=== PATIENT | female | born 1950 ===

== ENCOUNTER 2018-01-08 16:15 | Observation (INO) | payer MEDICARE, MEDICAID ==
[2018-01-08 16:16] VITALS: BMI 31.2
--- NOTE | 2018-01-08 16:58 | ED PDOC ---
HPI:STROKE - Time Time: 16:41 - Historian Historian: Patient - Chief Complaint Chief Complaint: Numbness - Onset Date: 12/25/17 Time: 12:00 - Timing Timing: Resolved - TPA Positive for Contraindication: Yes Reason tPA is not being Administered: out of window and nih is 0 - Notes: Notes:: Pt. with numbness to left face and left arm 2 weeks ago that happened. It happened 2x and then again today it happened 2x. Resolved currently. Yesterday felt weakness all over. No headaches, dizziness, neck pain. No chest pain, dyspnea. Has cough, nasal congestion, runny nose for 3 days. No leg or arm pain. NIHSS Stroke Scale - Date/Time Evaluation Performed Date Performed: 01/08/18 Time Performed: 16:32 When Was NIHSS Performed: Baseline - How Severe is the Stroke Level of Consciousness: 0=Alert LOC to Questions: 0=Both comments correct LOC to commands: 0=Obeys both correctly Best Gaze: 0=Normal Visual: 0=No visual loss Facial: 0=Normal Motor Arm - Left: 0=No drift Motor Arm - Right: 0=No drift Motor Leg - Left: 0=No drift Motor Leg - Right: 0=No drift Limb Ataxia: 0=Absent Sensory: 0=Normal Best Language: 0=No aphasia Dysarthia: 0=Normal articulation Extinction & Inattention (Neglect): 0=Normal, no object Score: 0 rTPA Inclusion/Exclusion - Refusal of Treatment Patient Refused Treatment: No - Inclusion Criteria for Altepase Patient is 18 years or Older: Yes The Clinical Diagnosis of Ischemic Stroke That is Causing a Potentially Disabling Neurological Deficit: No Time of Onset is Well Established to be Less Than 270 Minute Before Treatment Would Begin: No Risk/Benefit Discussed With Patient/Family Member Present: No Past Medical History Reviewed: Nursing Documentation, Vital Signs Vital Signs: Last Vital Signs Temp 98.0 F 01/08/18 16:30 Pulse 83 01/08/18 16:30 Resp 18 01/08/18 16:30 BP 140/59 L 01/08/18 16:30 Pulse Ox 99 01/08/18 16:30 - Medical History PMH: Arthritis, HTN, Hypercholesterolemia, Hyperlipidemia, Malignancy (Ovarian cancer, uterine cancer, colon cancer.), Osteoporosis Denies: Chronic Kidney Disease - Family History Family History: States: Unknown Family Hx - Immunization History Hx Tetanus Toxoid Vaccination: No Hx Influenza Vaccination: No Hx Pneumococcal Vaccination: No - Home Medications Home Medications: Ambulatory Orders Medication Instructions Recorded Ibuprofen [Motrin Tab] 600 mg PO Q8H PRN #12 tab 01/14/17 Lisinopril [Zestril] 10 mg PO DAILY #30 01/14/17 Omeprazole 20 mg PO DAILY #30 01/14/17 Amoxicillin [Amoxil 500 mg Cap] 1 cap PO BID 03/14/17 Azithromycin [Zithromax] 500 mg PO DAILY #7 tablet 03/14/17 Benzonatate [Tessalon Perles] 100 mg PO TID #20 sgl 03/14/17 Naproxen [Naprosyn Tab] 375 mg PO TIDPC #20 tab 03/14/17 - Allergies Allergies/Adverse Reactions: Allergies Allergy/AdvReac Type Severity Reaction Status Date / Time shrimp Allergy Severe RASH Verified 03/14/17 04:19 iodine Allergy Verified 03/14/17 04:19 hydromorphone [From Dilaudid] AdvReac ITCHING Verified 03/14/17 04:19 Review of Systems ROS Statement: Except As Marked, All Systems Reviewed And Found Negative Constitutional: Positive for: Weakness ENT: Positive for: Nose Congestion Respiratory: Positive for: Cough Neurological: Positive for: Weakness, Numbness Physical Exam - Reviewed Nursing Documentation Reviewed: Yes Vital Signs Reviewed: Yes - Physical Exam Appears: Positive for: Non-toxic, No Acute Distress Head Exam: Positive for: ATRAUMATIC, NORMAL INSPECTION, NORMOCEPHALIC Skin: Positive for: Normal Color, Warm, DRY Eye Exam: Positive for: EOMI, Normal appearance, PERRL ENT: Positive for: Nasal Congestion. Negative for: Pharyngeal Erythema, Tonsillar Exudate Neck: Positive for: Normal, Painless ROM, Supple Cardiovascular/Chest: Positive for: Regular Rate, Rhythm Respiratory: Positive for: CNT, Normal Breath Sounds Gastrointestinal/Abdominal: Positive for: Normal Exam, Soft. Negative for: Tenderness Back: Positive for: Normal Inspection. Negative for: L CVA Tenderness, R CVA Tenderness Extremity: Positive for: Normal ROM. Negative for: Tenderness, Pedal Edema Neurologic/Psych: Positive for: Alert, buyer tobacco head II-XII, Oriented. Negative for: Motor/Sensory Deficits, Mood/Affect, Aphasia, Facial Droop - Laboratory Results Result Diagrams: 01/08/18 16:56 01/08/18 16:56 Interpretation Of Abn Labs: 19.8 wbc Urine dip results: Negative for: Leukocyte Esterase, Nitrate - ECG ECG: Positive for: Interpreted By Me, Viewed By Me ECG Rhythm: Positive for: Normal QRS, Normal ST Segment, Sinus Rhythm O2 Sat by Pulse Oximetry: 99 Pulse Ox Interpretation: Normal - Radiology X-Ray: Read By Radiologist X-Ray Interpretation: No Acute Disease - CT Scan/US ct Other Rad Studies (CT/US): Read By Radiologist Other Rad Interpretation: no acute - Progress ED Course And Treament: 1929: Stable. AAOx3. No symptoms currently. Will admit tele obs. Spoke with Dr. Lisa who will admit. Disposition - Clinical Impression Clinical Impression: TIA (transient ischemic attack), Leukocytosis, URI (upper respiratory infection ) - Patient ED Disposition Is Patient to be Admitted: Yes Counseled Patient/Family Regarding: Studies Performed, Diagnosis - Disposition Disposition Time: 19:00 Condition: FAIR - Pt Status Changed To: Hospital Disposition Of: Observation - POA Present On Arrival: None
[2018-01-08 17:05] LABS: BASO # 0.2 K/uL (0.0-0.2); BASO % 1.1 % (0.0-2.0); EOS # 0.3 K/uL (0.0-0.7); EOS % 1.3 % (0.0-4.0); HEMOGLOBIN 14.4 g/dL (12.0-16.0); LYMPH # 5.7 K/uL (1.0-4.3); LYMPH % 29.1 % (20.0-40.0); MEAN CELL VOLUME 86.1 fl (81.0-99.0); MEAN CORPUSCULAR HEMOGLOBIN 27.8 pg (27.0-31.0); MEAN CORPUSCULAR HGB CONC 32.3 g/dL (33.0-37.0); MEAN PLATELET VOLUME 9.5 fl (7.2-11.7); MONO # 1.7 K/uL (0.0-0.8); MONO % 8.7 % (0.0-10.0); NEUT # 11.8 K/uL (1.8-7.0); NEUT % 59.8 % (50.0-75.0); RBC 5.16 Mil/uL (3.80-5.20); RED CELL DISTRIBUTION WIDTH 14.8 % (11.5-14.5); WHITE BLOOD COUNT 19.8 K/uL (4.8-10.8)
[2018-01-08] MEDS: Sodium Chloride 0.9% 1,000 ML IV SCH (17:12)
[2018-01-08 17:16] LABS: ALB/GLOB RATIO 1.2 (1.0-2.1); ALBUMIN 3.7 g/dL (3.5-5.0); ALT/SGPT 40 U/L (9-52); AST/SGOT 25 U/L (14-36); BLOOD UREA NITROGEN 22 mg/dl (7-17); CALCIUM 9.1 mg/dL (8.4-10.2); GFR AFRICAN-AMERICAN > 60; GFR NON-AFRICAN AMERICAN > 60; HDL CHOLESTEROL 56 MG/DL (30-70)
--- NOTE | 2018-01-08 17:17 | CT ---
PROCEDURE: CT scan brain dated 01/08/2018 HISTORY: Headache COMPARISON: None available. TECHNIQUE: Axial computed tomography images were obtained through the head/brain without intravenous contrast. Radiation dose: Total exam DLP = 673.67 mGy-cm. This CT exam was performed using one or more of the following dose reduction techniques: Automated exposure control, adjustment of the mA and/or kV according to patient size, and/or use of iterative reconstruction technique. FINDINGS: HEMORRHAGE: No acute parenchymal, subarachnoid nor extra-axial hemorrhage. BRAIN: Mild diffuse/confluent chronic periventricular white matter ischemic changes. Additionally, there are a scattered subcortical and bilateral basal nuclei chronic lacunar-type infarcts. . Mild age-appropriate volume loss. VENTRICLES: No obstructive hydrocephalus. CALVARIUM: There are no acute calvarial fractures. PARANASAL SINUSES: Frontal sinuses are underpneumatized/ hypoplastic. . The remaining visualized paranasal sinuses are otherwise well-developed. Minor mucosal thickening seen within a few ethmoid air cells. . MASTOID AIR CELLS: Left mastoid air complex is slightly underpneumatized on compared the right. OTHER FINDINGS: Orbits and contents unremarkable. IMPRESSION: No acute intracranial hemorrhage. Mild chronic white matter and basal nuclei ischemic changes. Mild age-appropriate volume loss.
[2018-01-08 17:26] LABS: LDL CHOLESTEROL 109 mg/dL (0-129)
[2018-01-08 17:38] LABS: INR 1.1 (0.9-1.2); PARTIAL THROMBOPLASTIN TIME 22.1 Seconds (25.6-37.1); PROTHROMBIN TIME 11.7 Seconds (9.8-13.1)
[2018-01-08] MEDS ORDERED: Aspirin 325 mg EC Tablets PO ONE (21:29)
[2018-01-09] MEDS: levoFLOXacin 500 mg in D5W 500 MG/100 ML BAG IVPB SCH (00:36)
[2018-01-09] MEDS: Sodium Chloride 0.9% 1,000 ML IV SCH ×2 (06:51)
--- NOTE | 2018-01-09 08:24 | CP.PCM.HP ---
History of Present Illness - History of Present Illness History of Present Illness: 67 yo ,f, Pmhs/o HTN, HLD, Colon Ca s/p chemotherapy 8 years ago, lung CA s/p chemotherapy 6 years ago presents to ED c/o left side facial numbness and left hand numbness started yesterday ,not related with any particular event. Patient reports it happened also 3 months ago. She also c/o dry cough for the last 5 days associated with chest pain when she cough. She reports +sick contact. She denies fever, SOB, focal motor weakness, headache, confusion, slurred speech, recent travel. Patient reports she had a static surgery 2 weeks ago on her eyelids. PMd : marivel Hem-Onc: Dr Curtis Present on Admission - Present on Admission Any Indicators Present on Admission: No History of DVT/PE: No History of Uncontrolled Diabetes: No Urinary Catheter: No Decubitus Ulcer Present: No Review of Systems - Review of Systems All systems: reviewed and no additional remarkable complaints except - Cardiovascular Cardiovascular: As Per HPI - Respiratory Respiratory: As Per HPI - Neurological Neurological: Numbness Additional comments: left side facial and left hand Past Patient History - Past Medical History & Family History Past Medical History?: Yes - Past Social History Smoking Status: Former Smoker - CARDIAC Hx Cardiac Disorders: Yes Hx Hypercholesterolemia: Yes Hx Hypertension: Yes - PULMONARY Hx Respiratory Disorders: Yes Other/Comment: Right lung cancer - chemo ( 5 years ago) - NEUROLOGICAL Hx Neurological Disorder: No - HEENT Hx HEENT Problems: No Other/Comment: bilateral eyelids surgery - RENAL Hx Chronic Kidney Disease: No - ENDOCRINE/METABOLIC Hx Endocrine Disorders: No - HEMATOLOGICAL/ONCOLOGICAL Hx Blood Disorders: Yes Hx AIDS: No Hx Cancer: Yes (lung, ovarian and colon ca) Hx Chemotherapy: Yes (5 years ago) Hx Human Immunodeficiency Virus (HIV): No Other/Comment: Pt in remission - INTEGUMENTARY Hx Dermatological Problems: No - MUSCULOSKELETAL/RHEUMATOLOGICAL Hx Musculoskeletal Disorders: Yes Hx Arthritis: Yes Hx Falls: No Hx Osteoporosis: Yes - GASTROINTESTINAL Hx Gastrointestinal Disorders: Yes Hx Gastroesophageal Reflux: Yes - GENITOURINARY/GYNECOLOGICAL Hx Genitourinary Disorders: Yes Hx Ovarian Cancer: Yes Hx Uterine Cancer: Yes - PSYCHIATRIC Hx Psychophysiologic Disorder: No Hx Substance Use: No - SURGICAL HISTORY Hx Surgeries: Yes Hx Hysterectomy: Yes Other/Comment: colon surgery, removed - ANESTHESIA Hx Anesthesia: Yes Hx Anesthesia Reactions: No Hx Malignant Hyperthermia: No Meds Allergies/Adverse Reactions: Allergies Allergy/AdvReac Type Severity Reaction Status Date / Time shrimp Allergy Severe RASH Verified 03/14/17 04:19 iodine Allergy Verified 03/14/17 04:19 hydromorphone [From Dilaudid] AdvReac ITCHING Verified 03/14/17 04:19 Physical Exam - Constitutional Appears: Non-toxic, No Acute Distress - Head Exam Head Exam: ATRAUMATIC, NORMOCEPHALIC - Eye Exam Eye Exam: EOMI, Normal appearance. absent: Nystagmus - ENT Exam ENT Exam: Mucous Membranes Moist - Neck Exam Neck exam: Positive for: Normal Inspection - Respiratory Exam Respiratory Exam: Clear to Auscultation Bilateral. absent: Rales, Rhonchi, Wheezes - Cardiovascular Exam Cardiovascular Exam: REGULAR RHYTHM, +S1, +S2 - GI/Abdominal Exam GI & Abdominal Exam: Normal Bowel Sounds, Soft. absent: Guarding, Rebound - Extremities Exam Extremities exam: Positive for: normal inspection. Negative for: pedal edema - Back Exam Back exam: NORMAL INSPECTION - Neurological Exam Neurological exam: Alert, Oriented x3 - Psychiatric Exam Psychiatric exam: Normal Affect, Normal Mood - Skin Skin Exam: Intact Results - Vital Signs Recent Vital Signs: Last Vital Signs Temp 97.6 F 01/09/18 08:10 Pulse 67 01/09/18 08:10 Resp 20 01/09/18 08:10 BP 120/71 01/09/18 08:10 Pulse Ox 96 01/09/18 08:10 - Labs Result Diagrams: 01/09/18 10:00 01/09/18 10:00 Labs: Laboratory Results - last 24 hr 01/08/18 01/08/18 01/08/18 16:56 16:56 16:56 WBC 19.8 H RBC 5.16 Hgb 14.4 Hct 44.5 MCV 86.1 MCH 27.8 MCHC 32.3 L RDW 14.8 H Plt Count 272 MPV 9.5 Neut % (Auto) 59.8 Lymph % (Auto) 29.1 [place] % (Auto) 8.7 Eos % (Auto) 1.3 Baso % (Auto) 1.1 Neut # (Auto) 11.8 H Lymph # (Auto) 5.7 H [place] # (Auto) 1.7 H Eos # (Auto) 0.3 Baso # (Auto) 0.2 PT 11.7 INR 1.1 APTT 22.1 L Sodium 140 Potassium 3.9 Chloride 101 Carbon Dioxide 26 Anion Gap 17 BUN 22 H Creatinine 0.7 Est GFR ( Amer) > 60 Est GFR (Non-Af Amer) > 60 POC Glucose (mg/dL) Random Glucose 97 Hemoglobin A1c Calcium 9.1 Total Bilirubin 0.4 AST 25 ALT 40 Alkaline Phosphatase 93 Troponin I < 0.0120 Total Protein 6.8 Albumin 3.7 Globulin 3.1 Albumin/Globulin Ratio 1.2 Triglycerides 191 H Cholesterol 192 LDL Cholesterol Direct 109 HDL Cholesterol 56 Blood Type Antibody Screen BBK History Checked 01/08/18 01/08/18 01/08/18 16:56 17:00 17:50 WBC RBC Hgb Hct MCV MCH MCHC RDW Plt Count MPV Neut % (Auto) Lymph % (Auto) [place] % (Auto) Eos % (Auto) Baso % (Auto) Neut # (Auto) Lymph # (Auto) [place] # (Auto) Eos # (Auto) Baso # (Auto) PT INR APTT Sodium Potassium Chloride Carbon Dioxide Anion Gap BUN Creatinine Est GFR ( Amer) Est GFR (Non-Af Amer) POC Glucose (mg/dL) 118 H Random Glucose Hemoglobin A1c 6.5 Calcium Total Bilirubin AST ALT Alkaline Phosphatase Troponin I Total Protein Albumin Globulin Albumin/Globulin Ratio Triglycerides Cholesterol LDL Cholesterol Direct HDL Cholesterol Blood Type O POSITIVE Antibody Screen Negative BBK History Checked No verified bt Assessment & Plan - Assessment and Plan (Free Text) Plan: Assessment/Plan 1) TIA CT head no intracranial bleeding Neurology consult suggested -f/U MRI brain 2) URI CXr normal -Levaquin 3) Leukocytosis May be 2/2 URI -wbc trending down 4) Hx/o colon ca -chronic 5) Hx/o Lung CA -chronic 6) DVT Prophylaxis -lovenox 40 mg sc
--- NOTE | 2018-01-09 08:43 | RAD ---
HISTORY: Code Stroke COMPARISON: No prior. FINDINGS: LUNGS: 6 mm nodular density in the right upper/ mid lung. No active pulmonary disease. PLEURA: No significant pleural effusion identified, no pneumothorax apparent. CARDIOVASCULAR: Normal. OSSEOUS STRUCTURES: No significant abnormalities. VISUALIZED UPPER ABDOMEN: Normal. OTHER FINDINGS: None. IMPRESSION: No active disease. 6 mm nodular density in the right upper/ midlung. CT scan of the chest can be obtained for further evaluation as clinically warranted. ER notification submitted electronically.
[2018-01-09] MEDS: Enoxaparin 40 mg Syringe SC SCH (09:04)
[2018-01-09] MEDS: Pantoprazole 40 mg EC Tab PO SCH (09:09)
[2018-01-09 10:20] LABS: BASO # 0.1 K/uL (0.0-0.2); BASO % 0.6 % (0.0-2.0); EOS # 0.7 K/uL (0.0-0.7); EOS % 4.7 % (0.0-4.0); HEMOGLOBIN 13.7 g/dL (12.0-16.0); LYMPH # 5.2 K/uL (1.0-4.3); LYMPH % 35.8 % (20.0-40.0); MEAN CELL VOLUME 86.1 fl (81.0-99.0); MEAN CORPUSCULAR HEMOGLOBIN 28.3 pg (27.0-31.0); MEAN CORPUSCULAR HGB CONC 32.9 g/dL (33.0-37.0); MEAN PLATELET VOLUME 9.2 fl (7.2-11.7); MONO # 0.9 K/uL (0.0-0.8); MONO % 6.6 % (0.0-10.0); NEUT # 7.5 K/uL (1.8-7.0); NEUT % 52.3 % (50.0-75.0); NRBC % 0.1 % (0.0-0.0); RBC 4.83 Mil/uL (3.80-5.20); RED CELL DISTRIBUTION WIDTH 14.7 % (11.5-14.5); WHITE BLOOD COUNT 14.4 K/uL (4.8-10.8)
[2018-01-09 10:42] LABS: ALB/GLOB RATIO 1.2 (1.0-2.1); ALBUMIN 3.2 g/dL (3.5-5.0); ALT/SGPT 31 U/L (9-52); AST/SGOT 19 U/L (14-36); BLOOD UREA NITROGEN 16 mg/dl (7-17); CALCIUM 8.8 mg/dL (8.4-10.2); GFR AFRICAN-AMERICAN > 60; GFR NON-AFRICAN AMERICAN > 60
--- NOTE | 2018-01-09 12:20 | CARD ---
APPROVED REPORT EKG Measurement Heart [id number] [id number] <Conclusion> Normal sinus rhythm Minimal voltage criteria for LVH, may be normal variant Borderline ECG
[2018-01-09 12:40] LABS: SQUAMOUS EPITHIAL < 1 /hpf (0-5); URINE BACTERIA RARE (<OCC); URINE BILIRUBIN NEGATIVE (NEGATIVE); URINE BLOOD NEGATIVE (NEGATIVE); URINE CLARITY CLEAR (Clear); URINE COLOR COLORLESS (YELLOW); URINE GLUCOSE (UA) NEG (Normal); URINE LEUKOCYTE ESTERASE NEG Leu/uL (Negative); URINE PROTEIN NEGATIVE (NEGATIVE); URINE UROBILINOGEN 0.2-1.0 mg/dL (0.2-1.0)
--- NOTE | 2018-01-09 18:17 | MRI ---
PROCEDURE: MRI BRAIN WITHOUT CONTRAST HISTORY: right sided numbness COMPARISON: None. TECHNIQUE: Multiplanar, multisequence MR images of the brain were obtained without intravenous contrast enhancement. FINDINGS: HEMORRHAGE: None DWI: No evidence of an acute or early subacute infarction. BRAIN PARENCHYMA: No mass effect or edema. Mild chronic microvascular changes are seen in the deep white matter VENTRICLES: Unremarkable. No hydrocephalus. CRANIUM: Unremarkable. ORBITS: Grossly unremarkable. PARANASAL SINUSES/MASTOIDS: Clear VASCULAR SYSTEM: Skull base flow voids intact. OTHER FINDINGS: None. IMPRESSION: No acute intracranial findings
[2018-01-09] MEDS ORDERED: Benzocaine/Menthol (Cepacol) Lozenge PO PRN (18:54)
[2018-01-09] MEDS ORDERED: Benzocaine/Menthol (Cepacol) Lozenge PO SCH (21:00)
[2018-01-10] VITALS: RESP 18
[2018-01-10] MEDS: levoFLOXacin 500 mg in D5W 500 MG/100 ML BAG IVPB SCH (00:12)
--- NOTE | 2018-01-10 05:14 | CON ---
NEUROLOGY CONSULTATION DATE: 01/09/2018 CHIEF COMPLAINT: Numbness of the left face and left arm. HISTORY OF PRESENT ILLNESS: This is a 67-year old woman with a history of hypertension, dyslipidemia, history of malignancies such as ovarian cancer, uterine cancer, colon cancer, status post chemo in remission, osteoporosis, and history of degenerative disk disease in C4-C5 level, who presents with immediate numbness of the left face as well as left arm and also was having nasal congestion, cough, and runny nose and has been treated for upper respiratory tract infection, which correlates to her mildly elevated WBCs. Her CAT scan of the head showed no acute intracranial abnormality, currently she has no focal neurological deficits, no pronator seen. No weakness. She will be going for an MRI of the brain. She has low systolic and diastolic blood pressures at times. PAST MEDICAL HISTORY: As above. SOCIAL HISTORY: No illicit drug use, smoking, or ETOH abuse. FAMILY HISTORY: Noncontributory. ALLERGIES: SHRIMP, IODINE, HYDROMORPHONE. MEDICATIONS: Reviewed by nurse reconciliation sheet. REVIEW OF SYSTEMS: A 14-point review of systems negative except in the HPI. PHYSICAL EXAMINATION: VITAL SIGNS: Temperature 98.1, pulse rate 81, blood pressure 97/56, respiratory rate 18, and oxygen saturation 95% by room air. GENERAL: The patient is seen up in bed, in no acute distress. HEENT: Atraumatic and normocephalic. PERRLA. Extraocular muscles are intact. NECK: Supple. No JVD. No adenopathy noted. LUNGS: Clear to auscultation. No adventitious sounds. HEART: S1 and S2. Normal rate and rhythm. No murmurs, rubs, or gallops. ABDOMEN: Soft, nontender, and nondistended. Bowel sounds present. EXTREMITIES: No clubbing. No cyanosis. Peripheral pulses 2+ bilaterally. NEUROLOGIC: The patient is alert and oriented to person, place, month, and year. Speech is fluent without any errors. Cranial nerves II through XII are intact. Motor: Moves all extremities equally. Toes are downgoing bilaterally. Sensory: Light touch, pinprick, proprioception, and vibration are intact. DTRs are 2+ throughout. Coordination: [id number] intact. Gait is deferred for now. LABORATORY DATA: Sodium 140, potassium 3.9, chloride 104, carbon dioxide 28, BUN of 16, creatinine 0.6, and random glucose of 97. ASSESSMENT: This is a 67-year-old woman with history of malignancies in the past, history of chemotherapy, history of hypertension, dyslipidemia, history of osteoporosis, came in for transient intermittent numbness of the left side of the face and left arm, in addition had upper respiratory tract infection symptoms for which she is on antibiotics. At this time, her symptoms could be secondary underlying transient cerebral hypoperfusion causing transient ischemic attack like symptoms. RECOMMENDATIONS: 1. At this time, I recommend aspirin 81 mg, Lipitor 40 mg, and a heart-healthy diet for stroke prevention. 2. MRI of the brain shows some acute lacunar infarcts. 3. Continue with monitor for underlying upper respiratory tract infection, monitor electrolytes and correct accordingly and continue with current present medical management. Thank you for this consult. Veto Esquivel MD
[2018-01-10 07:54] VITALS: O2SAT 98
[2018-01-10] MEDS: Pantoprazole 40 mg EC Tab PO SCH (09:08)
[2018-01-10] MEDS: Enoxaparin 40 mg Syringe SC SCH (09:08)
--- NOTE | 2018-01-10 09:31 | CP.PCM.PCO ---
Assessment/Plan - Assessment and Plan (Free Text) Assessment: Patient seen and examined Patient feeling better denies chest pain, shortness of breath, n/v Discussed plan with neurology: no acute infarcts on mri cont asa lipitor and heart healthy diet
[2018-01-10 12:06] VITALS: BP 119/74; PULSE 84; TEMP 97.5
--- NOTE | 2018-01-10 13:28 | CP.PCM.DIS ---
Provider - Provider Date of Admission: 01/08/18 19:26 Attending physician: Kody Lisa MD Consults: Neurologist Dr Esquivel Time Spent in preparation of Discharge (in minutes): 20 Hospital Course - Lab Results Lab Results: Micro Results 01/09/18 12:20 Urine,Clean Catch Urine Culture - Final No Growth (<1,000 CFU/ML) Most Recent Lab Values WBC 14.4 K/uL (4.8-10.8) H 01/09/18 10:00 RBC 4.83 Mil/uL (3.80-5.20) 01/09/18 10:00 Hgb 13.7 g/dL (12.0-16.0) 01/09/18 10:00 Hct 41.6 % (34.0-47.0) 01/09/18 10:00 MCV 86.1 fl (81.0-99.0) 01/09/18 10:00 MCH 28.3 pg (27.0-31.0) 01/09/18 10:00 MCHC 32.9 g/dL (33.0-37.0) L 01/09/18 10:00 RDW 14.7 % (11.5-14.5) H 01/09/18 10:00 Plt Count 228 K/uL (130-400) 01/09/18 10:00 MPV 9.2 fl (7.2-11.7) 01/09/18 10:00 Neut % (Auto) 52.3 % (50.0-75.0) 01/09/18 10:00 Lymph % (Auto) 35.8 % (20.0-40.0) 01/09/18 10:00 [place] % (Auto) 6.6 % (0.0-10.0) 01/09/18 10:00 Eos % (Auto) 4.7 % (0.0-4.0) H 01/09/18 10:00 Baso % (Auto) 0.6 % (0.0-2.0) 01/09/18 10:00 Neut # (Auto) 7.5 K/uL (1.8-7.0) H 01/09/18 10:00 Lymph # (Auto) 5.2 K/uL (1.0-4.3) H 01/09/18 10:00 [place] # (Auto) 0.9 K/uL (0.0-0.8) H 01/09/18 10:00 Eos # (Auto) 0.7 K/uL (0.0-0.7) 01/09/18 10:00 Baso # (Auto) 0.1 K/uL (0.0-0.2) 01/09/18 10:00 PT 11.7 Seconds (9.8-13.1) 01/08/18 16:56 INR 1.1 (0.9-1.2) 01/08/18 16:56 APTT 22.1 Seconds (25.6-37.1) L 01/08/18 16:56 Sodium 140 mmol/l (132-148) 01/09/18 10:00 Potassium 3.9 MMOL/L (3.6-5.0) 01/09/18 10:00 Chloride 104 mmol/L (98-107) 01/09/18 10:00 Carbon Dioxide 28 mmol/L (22-30) 01/09/18 10:00 Anion Gap 12 (10-20) 01/09/18 10:00 BUN 16 mg/dl (7-17) 01/09/18 10:00 Creatinine 0.6 mg/dl (0.7-1.2) L 01/09/18 10:00 Est GFR ( Amer) > 60 01/09/18 10:00 Est GFR (Non-Af Amer) > 60 01/09/18 10:00 POC Glucose (mg/dL) 118 mg/dL (65-110) H 01/08/18 17:50 Random Glucose 77 mg/dL (65-105) 01/09/18 10:00 Hemoglobin A1c 6.5 % (4.2-6.5) 01/08/18 17:00 Calcium 8.8 mg/dL (8.4-10.2) 01/09/18 10:00 Total Bilirubin 0.6 mg/dl (0.2-1.3) 01/09/18 10:00 AST 19 U/L (14-36) 01/09/18 10:00 ALT 31 U/L (9-52) 01/09/18 10:00 Alkaline Phosphatase 73 U/L (38-126) 01/09/18 10:00 Troponin I < 0.0120 ng/mL (0.00-0.120) 01/08/18 16:56 Total Protein 5.9 G/DL (6.3-8.2) L 01/09/18 10:00 Albumin 3.2 g/dL (3.5-5.0) L 01/09/18 10:00 Globulin 2.7 gm/dL (2.2-3.9) 01/09/18 10:00 Albumin/Globulin Ratio 1.2 (1.0-2.1) 01/09/18 10:00 Triglycerides 191 mg/DL (0-149) H 01/08/18 16:56 Cholesterol 192 mg/dL (0-199) 01/08/18 16:56 LDL Cholesterol Direct 109 mg/dL (0-129) 01/08/18 16:56 HDL Cholesterol 56 MG/DL (30-70) 01/08/18 16:56 Urine Color Colorless (YELLOW) 01/09/18 12:20 Urine Clarity Clear (Clear) 01/09/18 12:20 Urine pH 7.0 (5.0-8.0) 01/09/18 12:20 Ur Specific [place] < 1.005 (1.003-1.030) 01/09/18 12:20 Urine Protein Negative mg/dL (NEGATIVE) 01/09/18 12:20 Urine Glucose (UA) Neg mg/dL (Normal) 01/09/18 12:20 Urine Ketones Negative mg/dL (NEGATIVE) 01/09/18 12:20 Urine Blood Negative (NEGATIVE) 01/09/18 12:20 Urine Nitrate Negative (NEGATIVE) 01/09/18 12:20 Urine Bilirubin Negative (NEGATIVE) 01/09/18 12:20 Urine Urobilinogen 0.2-1.0 mg/dL (0.2-1.0) 01/09/18 12:20 Ur Leukocyte Esterase Neg [place]hsan/uL (Negative) 01/09/18 12:20 Urine RBC (Auto) 1 /hpf (0-3) 01/09/18 12:20 Ur Squamous Epith Cells < 1 /hpf (0-5) 01/09/18 12:20 Urine Bacteria Rare (<OCC) 01/09/18 12:20 Blood Type O POSITIVE 01/08/18 16:56 Antibody Screen Negative 01/08/18 16:56 BBK History Checked No verified bt 01/08/18 16:56 - Hospital Course Hospital Course: 67 yo ,f, Pmhs/o HTN, HLD, Colon Ca s/p chemotherapy 8 years ago, lung CA s/p chemotherapy 6 years ago admitted for TIA after patient started with left side numbness( face, left hand), patient also with URI and leukocytosis. Ct head normal. MRI brain no acute lacunar infart. Patient evaluated by neurologist Dr Esquivel. Patient cleared to be discharge with aspiring, Lipitor. Patient while on telemetry states that numbness subsided, clinically asymptomatic. Vs normal, wbc improved. On Levaquin. Will c/w Levaquin and cleared to be discharged by Dr Lisa during round and f/u with PMD Diagnosis 1) TIA -resolved 2) URI -resolved 3) Hx/o colon ca -chronic 4) Hx/o Lung CA -chronic Discharge Exam - Head Exam Head Exam: ATRAUMATIC, NORMOCEPHALIC - Eye Exam Eye Exam: EOMI, Normal appearance - ENT Exam ENT Exam: Mucous Membranes Moist - Respiratory Exam Respiratory Exam: Clear to PA & Lateral. absent: Rales, Rhonchi, Wheezes - Cardiovascular Exam Cardiovascular Exam: REGULAR RHYTHM, +S1, +S2 - GI/Abdominal Exam GI & Abdominal Exam: Normal Bowel Sounds, Soft. absent: Rebound, Tenderness - Extremities Exam Extremities exam: normal inspection - Neurological Exam Neurological exam: Alert, Oriented x3 - Psychiatric Exam Psychiatric exam: Normal Affect, Normal Mood - Skin Skin Exam: Intact Discharge Plan - Discharge Medications Prescriptions: Aspirin [Aspirin Chewable] 81 mg PO DAILY #30 chew Atorvastatin [Lipitor] 40 mg PO DAILY #30 tab levoFLOXacin [Levaquin] 500 mg PO DAILY #5 tab - Follow Up Plan Condition: FAIR Disposition: HOME/ ROUTINE Instructions: Transient Ischemic Attack (DC), Bacterial Upper Respiratory Infection, Adult Additional Instructions: follow up with pmd in 1 week Referrals: Kody Lisa MD [Staff Provider] - Dayana Crooks MD [Medical Doctor] -
== END 2018-01-10 13:00 | disposition home health service (06) ==
LOC: H.ER 16:15 → H.ERHOLD 19:26 → H.TEL 22:04
PROVIDERS: ADMIT Internal Medicine; ATTEND Internal Medicine
DX: G45.9 Transient cerebral ischemic attack, unspecified (principal); E78.00 Pure hypercholesterolemia, unspecified; E78.5 Hyperlipidemia, unspecified; I10 Essential (primary) hypertension; J06.9 Acute upper respiratory infection, unspecified; K21.9 Gastro-esophageal reflux disease without esophagitis; M81.0 Age-related osteoporosis without current pathological fracture; Z85.038 Personal history of other malignant neoplasm of large intestine; Z85.118 Personal history of other malignant neoplasm of bronchus and lung; Z85.42 Personal history of malignant neoplasm of other parts of uterus; Z85.43 Personal history of malignant neoplasm of ovary; Z87.891 Personal history of nicotine dependence; Z90.710 Acquired absence of both cervix and uterus; Z92.21 Personal history of antineoplastic chemotherapy; M19.90 Unspecified osteoarthritis, unspecified site; M50.321 Other cervical disc degeneration at C4-C5 level
CPT/HCPCS: 36415; 70450; 70551; 71045; 80053; 80061; 81003; 82948; 83036; 84484; 85025; 85610; 85730; 86850; 86900; 87086; 93005; 96365; 96366; 96372; 97161; 97166; 99285; G0378; G8978; G8979; G8980; G8987; G8988; G8989; J1650; J7040